=== PATIENT | female | born 1980 | race Caucasian/White ===

== ENCOUNTER 2023-08-13 14:39 | Emergency (ER) | payer BC ==
[2023-08-13 15:38] LABS: BASOPHILS ABSOLUTE AUTO 0.1 x10-3/uL (0.0-0.1); BASOPHILS PERCENT AUTO 0.7 % (0.2-1.5); EOSINOPHILS ABSOLUTE AUTO 0.1 x10-3/uL (0.0-0.8); EOSINOPHILS PERCENT AUTO 0.8 % (0.6-8.1); HEMATOCRIT 44.9 % (34.2-48.2); HEMOGLOBIN 15.2 g/dL (11.4-15.5); LYMPHOCYTES ABSOLUTE AUTO 1.4 x10-3/uL (1.0-4.4); LYMPHOCYTES PERCENT AUTO 11.5 % (18.4-52.1); MEAN CORPUSCULAR HEMOGLOBIN 32.6 pg (23.9-33.9); MEAN CORPUSCULAR HGB CONC 33.9 g/dL (31.9-34.8); MEAN CORPUSCULAR VOLUME 96.2 fL (76.7-100.5); MEAN PLATELET VOLUME 8.8 fL (7.1-12.4); MONOCYTES PERCENT AUTO 8.3 % (4.4-15.7); NEUTROPHILS ABSOLUTE AUTO 9.5 x10-3/uL (1.5-6.3); NEUTROPHILS PERCENT AUTO 78.7 % (30.8-76.2); PLATELET COUNT,PLT 355 x10(3)uL (151-488); RED BLOOD CELL COUNT 4.66 x10(6)uL (3.60-5.20); RED CELL DISTRIBUTION WIDTH 12.9 % (12.3-16.5); WHITE BLOOD CELL COUNT,WBC 12.1 x10-3/uL (3.0-10.3)
[2023-08-13 15:42] LABS: BLOOD UREA NITROGEN,BUN 15 mg/dL (7-18); BUN/CREATININE RATIO 21.4 (9-20); CALCIUM 9.1 mg/dL (8.6-10.2); CARBON DIOXIDE,CO2 28 mmol/L (21-32); CHLORIDE,CL 97 mmol/L (100-110); CREATININE 0.7 mg/dL (0.55-1.02); EST CRCL DRUG DOSING (CG) 101.81 mL/min; ESTIMATED GFR 111 mL/min (>60); GLUCOSE RANDOM 83 mg/dL (80-116); POTASSIUM,K 3.3 mmol/L (3.5-5.3); SODIUM,NA 136 mmol/L (135-145)
[2023-08-13 15:46] LABS: ALANINE AMINOTRANSFERASE,ALT 38 U/L (12-36); ALBUMIN 3.9 g/dL (3.5-5.2); ALKALINE PHOSPHATASE 92 IU/L (56-112); ASPARTATE AMNIOTRANSFERASE,AST 24 IU/L (5-25); BILIRUBIN TOTAL 0.5 mg/dL (0.1-1.3); MAGNESIUM 2.3 mg/dL (1.8-2.5); PROTEIN TOTAL,TP 7.8 g/dL (6.0-8.0)
== END 2023-08-13 16:25 | disposition home or self-care (01) ==
LOC: FB.ED 14:39
DX: E87.6 Hypokalemia (principal); J11.1 Influenza due to unidentified influenza virus with other respiratory manifestations; F17.210 Nicotine dependence, cigarettes, uncomplicated
CPT/HCPCS: 80053; 82947; 83735; 85025; 86140; 99283; 99284